=== PATIENT | male | born 1960 | race Caucasian/White ===

== ENCOUNTER → 2021-02-26 13:36 | Outpatient (BNVA) | payer MEDICAID, SELFPAY | PROVIDERS: PCP Family Medicine; Visit Provider Nurse Practitioner Family | DX: M25.511 Pain in right shoulder (principal) | CPT/HCPCS: 73030 ==

== ENCOUNTER 2021-04-07 10:26 | Outpatient (CLI) | payer MEDICAID, SELFPAY ==
--- NOTE | 2021-04-07 11:00 | MR_ITS ---
WS: [id number] MRI RIGHT SHOULDER HISTORY: S49.90XA - Unspecified injury of shoulder and upper arm, ... COMPARISON: 02/26/2021 TECHNIQUE: Multiplanar sequences of the shoulder joint are submitted. Moderate AC joint edema and increased signal. Hypertrophic bone formation involving the distal clavic le and acromion with capsular thickening. There is encroachment upon the supraspinatus tendon. Modera te amount of fluid extends into the subacromial and subdeltoid bursa. Mild narrowing of the subacromi al space. There is an osteophyte extending inferior from the undersurface of the acromion with encroa chment upon the supraspinatus tendon and narrowing of the subacromial space. No os acromion. Biceps t endon is not identified in the bicipital groove. High riding humeral head. Full-thickness tear involving the distal supraspinatus tendon as it crosses over the humeral head. This is also the site of the subacromial impingement by an acromial osteophyt e. There is a full-thickness tear with mild retraction of the supraspinatus tendon to the superior hu meral head. There is also moderate tendinopathy in the supraspinatus tendon. Infraspinatus tendon boss s appear to be intact. There is atrophy involving all of the muscles of the rotator cuff. Most signif icant atrophy involves the subscapularis and infraspinatus muscles. Subchondral cystic changes over the posterior lateral humeral head. Loss of cartilage over the sariah l head. Moderate narrowing of the glenohumeral joint. Intrasubstance degeneration in the labrum. Smal l lobulated paralabral cysts near the posterior labrum which are often associated with labral tears. MR/MR shoulder RT wo con* [id number] IMPRESSION: 1. Full-thickness tear anterior supraspinatus tendon with mild retraction to t he superior humeral head. 2. Subacromial impingement. The acromial impingement is at the site of the sup raspinatus tendon tear. 3. Moderate AC joint hypertrophy and encroachment upon the supraspinatus tendo n and muscle. 4. Atrophy and a small amount of edema within the infraspinatus and subscapula ris muscles. 5. Posterior paralabral cysts. Often seen with labral tears. 6. Biceps tendon not present in the bicipital groove. Torn versus dislocated.
== END 2021-04-07 10:27 | disposition home or self-care (01) ==
LOC: RADSHAW 10:29
PROVIDERS: PCP Family Medicine; Visit Provider Orthopaedic Surgery
DX: S43.431A Superior glenoid labrum lesion of right shoulder, initial encounter (principal); X58.XXXA Exposure to other specified factors, initial encounter
CPT/HCPCS: 73221

== ENCOUNTER → 2021-04-22 10:59 | Outpatient (BNVA) | payer MEDICAID, SELFPAY | PROVIDERS: PCP Nurse Practitioner Family; Visit Provider Orthopaedic Surgery | DX: Z01.812 Encounter for preprocedural laboratory examination (principal); Z20.822 Contact with and (suspected) exposure to COVID-19 | CPT/HCPCS: 87635 ==

== ENCOUNTER → 2021-04-29 12:15 | Outpatient (BNVA) | payer MEDICAID, SELFPAY | PROVIDERS: PCP Nurse Practitioner Family; Visit Provider Orthopaedic Surgery | DX: Z20.822 Contact with and (suspected) exposure to COVID-19 (principal); S43.401A Unspecified sprain of right shoulder joint, initial encounter; X58.XXXA Exposure to other specified factors, initial encounter | CPT/HCPCS: 87635 ==

== ENCOUNTER 2021-05-04 05:21 | Day surgery (SDC) | payer MEDICAID, SELFPAY ==
[2021-05-01 16:48] VITALS: BMI 25.0
[2021-05-04] VITALS (9 sets, daily range): BP systolic 124–150; BP diastolic 59–94; PULSE 52–78; RESP 16–20; TEMP 36.1–36.4; O2SAT 91–98
[2021-05-04] MEDS: acetaminophen 500 mg Tablet 1000 MG PO (06:00)
[2021-05-04] MEDS: sodium chloride 0.9% 1,000 ML 30 ML IV (06:25)
--- NOTE | 2021-05-04 06:30 | ANES.PREANE2 ---
Pre-Anesthetic Assessment Pre-Anesthetic Assessment: Height/Weight: Height 1.73 m Weight 74.843 kg Temp Pulse Resp BP Pulse Ox 97.6 F 78 20 H 132/80 95 05/04/21 05:40 05/04/21 05:40 05/04/21 05:40 05/04/21 05:40 05/04/21 05:40 Preop Diagnosis: Rotator cuff tear Right Proposed Procedure: Operation Date: 05/04/21 07:00 Proposed Procedures p Shoulder Arthroscopy 61435 M75.101(Right) - Ronald Bautista MD s Rotator Cuff Repair(Right) - Ronald Bautista MD Familial anesthetic complications: none Was Beta Kwaku taken within 24 hours: N/A Was Clonidine taken within 24 hours: N/A Last intake: Intake Last Liquid Date 05/03/21 Last Liquid Time 22:00 Last Solid Date 05/03/21 Last Solid Time 22:00 Social: Social History: Tobacco and No alcohol Exam: Pre-Anes Outpt Exam: alert, oriented x 3, clear to auscultation bilaterally and regular rate & rhythm Airway: Cervical ROM: WNL MP: 2 Dentition: False Additional comments: full gonzalez Pulmonary: Pulmonary: Cough Anesthetic Plan: ASA status: 2 Anesthesia: General and Regional (specify below) Risk of > 500 ml blood loss (7ml/kg in children): No Meds/Allergies Current Medications: Current Medications Generic Name Dose Route Start Last Admin Trade Name Freq PRN Reason Stop Dose Admin Sodium Chloride 1,000 mls @ 30 ml s/hr 05/04/21 05:45 05/04/21 06:25 Sodium Chloride 0.9% IV 05/05/21 05:44 30 mls/hr .Q24H GOLDIE Administration Data Anesthesia Cardiac Studies: No Data to Display
--- NOTE | 2021-05-04 06:45 | ANES.PROC ---
Anesthesia Procedures Procedure/Date: 05/04/21 Nerve Block ^: Nerve Block 1: Main Anesthesia: general anesthesia Time Out Performed: Yes Consent: requested by attending/covering physician, from patient, risks and benefits reviewed and patient agrees to proceed Nerve block location: interscalene (R) Anesthesia monitors applied: pulse oximetry, EKG, BP cuff and oxygen Nerve block position: semi sitting Anesthetic Used: ropivicaine 0.5% and with decadron (4 mg) Amount of anesthesia used (mL): 20 Ultrasound used to: recognize landmarks and visualize and ID brachial plexus Nerve Stimulator Used?: No Interscalene/Femoral BLK: 2 stimuplex 22 g needle used for position and inplane approach, visualize local anesthetic spread and no vascular puncture identified Injection: neg aspiration of heme Patient Tolerated Procedure: well and no complications Complications: none
--- NOTE | 2021-05-04 07:01 | W.PM.OPSUD ---
Surgery/Procedure H&P Update DATE OF PROCEDURE: May 04, 2021 DATE H&P PERFORMED: 04/17/21 PREOP DIAGNOSIS: Rotator cuff tear Right PLANNED PROCEDURE: Operation Date: 05/04/21 07:00 Proposed Procedures p Shoulder Arthroscopy 14111 M75.101(Right) - Ronald Bautista MD s Rotator Cuff Repair(Right) - Ronald Bautista MD
--- NOTE | 2021-05-04 09:04 | PM.OP ---
Operative Report Date of procedure: May 04, 2021 Pre-op Diagnosis: Rotator cuff tear Right Post-op diagnosis: same Post-op Diagnosis: High-grade bursal tear right rotator cuff, impingement Post-op Findings: Same Procedure Done: Arthroscopic right rotator cuff repair with bio inductive patch Arthroscopic right subacromial decompression Implants: Snow and Nephew Regeneten patch, Snow [employer] Nephew Helicoil 4.5 mm anchor Pathology: none sent Surgeon: Ronald Bautista Anesthesia: General Estimated blood loss (mL): 10 Complications: None Findings: Grade bursal tear of his right rotator cuff approximately a centimeter and a half from anterior to posterior with a centimeter of retraction. The bursal tear involves approximately 50% of the thickness of the rotator cuff. He had no degenerative changes of his humeral head or glenoid. He had a previous old rupture of his biceps Condition: stable Disposition: PACU Procedure: The patient was taken to the operating room after an interscalene block was provided. He was given 2 g of Ancef. He is provided with a general anesthesia and positioned in the lateral position with his right arm in 15 pounds of traction. A timeout was performed. The shoulder was entered through a posterior portal. The diagnostic portion of glenohumeral arthroscopy performed. No significant articular sided tearing was identified. The biceps tendon was absent. There is no labral tearing and minimal chondromalacia of the humeral head or glenoid. The scope was then moved to the subacromial space. A anterior lateral working portals were made. Bursal tissue was removed. Prominent spurring was identified under the undersurface of the acromion. The area of high-grade bursal tearing in the footprint was identified. The decision was made to proceed with a small subacromial decompression to make room for the ultimate patch placement and provide vascularity for the patch. A 5.5 mm acromionizer was introduced and approximately 6 mm of anterior inferior acromion removed converting the acromion to type I morphology. Next a low lateral incision was made with a scalpel blade. The Snow and Nephew Regeneten patch was introduced. It was fixed medially with to soft tissue elias at both corners and a soft tissue stable in a middle anterior and middle posterior position. 3 lateral bone elias were placed securing the patch to the lateral tuberosity. Portals were closed with 3-0 Prolene. Sterile dressings were applied. The patient was extubated taken to recovery in stable condition.
--- NOTE | 2021-05-04 09:43 | SUR.PHASEI ---
1512 pt awake alert talkative, pt has numbness to right distal fingers , fingers pink warm cap refill less than 3 seconds, sling in place and first ice to rt shoulder, pt request coffee to sip on, pt complains of a headach from no caffeine this morning, pt to ops room 1 handoff at bedside to Renay DAUGHERTY
--- NOTE | 2021-05-04 14:51 | ANE.PACU2 ---
Inpatient post-anesthesia follow up: Airway intact: Yes Vital signs: Temperature 97.2 F Pulse Rate 56 Respiratory Rate 18 Blood Pressure 134/80 Pulse Oximetry 98 Oxygen Delivery Me thod Nasal Cannula Oxygen Flow Rate 2 Fraction of Inspir ed Oxygen Hydration adequate: Yes Nausea and vomiting: No Pain level: 2 Mental status: Baseline
== END 2021-05-04 10:20 | disposition home or self-care (01) ==
PROVIDERS: Orthopaedic Surgery; PCP Nurse Practitioner Family; Visit Provider Orthopaedic Surgery
PROC: (CPT 29805; principal; 2021-05-04 07:00)
DX: M25.811 Other specified joint disorders, right shoulder (principal); M94.211 Chondromalacia, right shoulder; M25.511 Pain in right shoulder
CPT/HCPCS: 29826; 29827; 64415; 76942; C1713; J0690; J1100; J2370; J2405; J2704; J2710; J2795; J3010; J3490; J7030

== ENCOUNTER 2021-06-04 06:00 | Outpatient (RCR) | payer MEDICAID, SELFPAY | END 2021-06-12 23:59 | disposition home or self-care (01) | LOC: WPT 06:00 | PROVIDERS: Referring Provider Nurse Practitioner Family; Visit Provider Nurse Practitioner Family | DX: M19.90 Unspecified osteoarthritis, unspecified site (principal); Z98.890 Other specified postprocedural states | CPT/HCPCS: 97110; 97163 ==

== ENCOUNTER 2021-06-13 06:00 | Outpatient (RCR) | payer MEDICAID, SELFPAY | END 2021-07-13 23:59 | disposition home or self-care (01) | LOC: WPT 06:00 | PROVIDERS: Referring Provider Nurse Practitioner Family; Visit Provider Nurse Practitioner Family | DX: M19.90 Unspecified osteoarthritis, unspecified site (principal); Z98.890 Other specified postprocedural states | CPT/HCPCS: 97530 ==